=== PATIENT | female | born 1960 | race Caucasian/White ===

== ENCOUNTER 2025-05-15 03:39 | Emergency (ER) | payer MEDICARE, SELFPAY ==
--- NOTE | ~2025-05-15 | XR_ITS ---
Portable chest x-ray Comparison: None Clinical History: Epigastric pain Findings: Lungs are clear, without focal consolidation or pleural effusion. Cardiomediastinal silho uette is unremarkable. Bones and soft tissues are unremarkable. Impression: Normal chest. Reviewed, dictated and finalized at location . Impression: Normal chest.
[2025-05-15 03:45] VITALS: BP 189/70; PULSE 65; RESP 14; TEMP 36.6; O2SAT 100
--- NOTE | 2025-05-15 03:48 | ECG_ITS ---
Test Date: 2025-05-15 03:55:42 Measurements Intervals [place] Rate: 57 P: 44 [place]: 174 QRS: 2 QRSD: 76 T: 42 QT: 420 QTc: 412 Interpretive Statements SINUS BRADYCARDIA CONSIDER RIGHT VENTRICULAR CONDUCTION DELAY LEFT VENTRICULAR HYPERTROPHY WITH ST-T CHANGE BASELINE ARTIFACT- I, II, III, AVR, AVL, AVF, V1-V6 BORDERLINE ECG No previous ECG available for comparison Electronically Signed On 05-15-2025 06:11:19 CDT by Trell Bolton D.O.
--- NOTE | 2025-05-15 03:49 | ED_ITS ---
HPI - General Adult General Chief complaint: Abdominal Pain Stated complaint: abd pain Time Seen by Provider: 05/15/25 03:41 History of Present Illness HPI narrative: 64-year-old female history of hypertension, high cholesterol presented emergency department for evaluation for epigastric abdominal pain. Patient states she did have similar pain on Monday night and pain resolved. Patient reports she was sleeping the epigastric pain started again tonight at approximately 1:30 a.m.. Patient denies any radiation of the pain to neck back or arms. Patient does take daily Advil but denies any prior history of gastritis esophagitis or GERD. Patient denies any prior cardiac history but has never had a stress test. Related Data Allergies Allergy/AdvReac Type Severity Reaction Status Date / Time No Known Allergies Allergy Verified 05/15/25 03:51 Review of Systems 2 Review of Systems: All systems reviewed & are unremarkable except as noted in HPI and below Exam 2 Narrative: APPEARANCE: Uncomfortable appearing HEAD: normocephalic, atraumatic. EYES: PERRLA/EOMI, conjunctivae clear. NOSE: Normal no drainage EARS:TMS clear with good light reflex. THROAT: Pharynx clear, no exudate. NECK: Supple. No adenopathy, no masses. RESPIRATORY: Airway patent, respirations nonlabored. Clear to auscultation bilaterally, no rales, rhonchi, wheezing. CARDIOVASCULAR: Regular rate and rhythm without murmurs rubs or gallops. ABDOMINAL: No reproducible epigastric tenderness to palpation MUSCULOSKELETAL: Moves all extremities. Strength/ROM intact, No edema, No calf tenderness. NEURO: Alert. Cranial nerves II through XII intact. Good gait. Good coordination SKIN: Warm, dry. Normal Color Course Vital Signs Vital signs: Vital Signs Temperature 97.9 F 05/15/25 03:45 Pulse Rate 65 05/15/25 03:45 Respiratory Rate 14 05/15/25 03:45 Blood Pressure 189/70 H 05/15/25 03:45 Pulse Oximetry 100 05/15/25 03:45 Oxygen Delivery Room Air 05/15/25 03:45 Temperature 97.9 F 05/15/25 03:57 Pulse Rate 57 L 05/15/25 03:57 Respiratory Rate 20 05/15/25 03:57 Blood Pressure 189/70 H 05/15/25 03:57 Pulse Oximetry 100 05/15/25 03:57 Oxygen Delivery Room Air 05/15/25 03:57 Medical Decision Making MDM Narrative Medical decision making narrative: 64-year-old female present to the emergency department for evaluation for epigastric pain. Patient is currently afebrile with no leukocytosis hemoglobin of 12.5 no acute abnormalities on the CMP and patient had a negative troponin negative lipase. Patient was treated with IV Protonix, IV famotidine and a p.o. GI cocktail. Patient reports that GI cocktail did resolve her symptoms. EKG shows no evidence of acute STEMI chest x-ray shows no acute cardiopulmonary abnormality. Patient will be started on omeprazole for home encouraged to avoid taking NSAIDs and will be encouraged to have follow-up with GI. Patient will also be encouraged to have close outpatient follow-up for additional outpatient cardiac testing. At time of sign-out the delta troponin is pending. Vital Signs Vital Signs: Vital Signs Temperature 97.9 F 05/15/25 03:45 Pulse Rate 65 05/15/25 03:45 Respiratory Rate 14 05/15/25 03:45 Blood Pressure 189/70 H 05/15/25 03:45 Pulse Oximetry 100 05/15/25 03:45 Oxygen Delivery Room Air 05/15/25 03:45 Temperature 97.9 F 05/15/25 03:57 Pulse Rate 57 L 05/15/25 03:57 Respiratory Rate 20 05/15/25 03:57 Blood Pressure 189/70 H 05/15/25 03:57 Pulse Oximetry 100 05/15/25 03:57 Oxygen Delivery Room Air 05/15/25 03:57 Lab Data 05/15/25 03:56 05/15/25 03:56 Labs: Lab Results 05/15/25 05/15/25 Range/Units 03:56 06:59 WBC 8.6 (4.5-10.0) K/mm3 RBC 4.41 (4.2-5.4) M/mm3 Hgb 12.5 (12.0-15.0) g/dL Hct 40.1 (37.0-47.0) % MCV 90.9 (80-100) fl MCH 28.3 (26-34) pg MCHC 31.2 L (32-36) g/dl RDW 13.3 (11.5-14.5) % Plt Count 257 (150-375) k/mm3 MPV 9.4 (7.4-10.4) fl Immature Gran % (Auto) 0.2 (0-0.5) % Neut % (Auto) 56.5 (45.5-73.1) % Lymph % (Auto) 31.7 (18.3-44.2) % [place] % (Auto) 8.2 (2.6-8.5) % Eos % (Auto) 2.9 (0-4.4) % Baso % (Auto) 0.5 (0.2-1.2) % Lymph # (Auto) 2.74 (0.9-3.2) K/mm3 [place] # (Auto) 0.7 H (0.1-0.6) K/mm3 Eos # (Auto) 0.3 (0-0.3) K/mm3 Baso # (Auto) 0.0 (0.0-0.1) K/mm3 Abs Immat Gran (auto) 0.02 (0.00-0.031) K/mm3 Absolute Neuts (auto) 4.9 (1.3-6.7) K/mm3 Absolute Nucleated RBC 0.000 (0.0-0.012) K/mm3 Nucleated RBC % 0.0 (0.0-0.2) % PT 13.7 (11.1-14.7) Seconds INR 1.1 APTT 26.6 (22.3-36.8) Seconds Sodium 142 (137-145) mmol/L Potassium 3.7 (3.4-5.0) mmol/L Chloride 107 (98-107) mmol/L Carbon Dioxide 24 (22-30) mmol/L Anion Gap 11 (4-12) mmol/L BUN 16 (7-17) mg/dL Creatinine 0.79 (0.7-1.0) mg/dL Estim Creat Clear Calc 59 ml/min Estimated GFR > 60 (59 - ) Glucose 127 H (65-110) mg/dL Lactic Acid 2.0 (0.7-2.0) mmol/L Calcium 9.5 (8.4-10.2) mg/dL Total Bilirubin 0.4 (0.2-1.3) mg/dL AST 28 (14-36) U/L ALT 24 (6-35) U/L Alkaline Phosphatase 112 (38-126) U/L Troponin I < 0.012 < 0.012 (0.000-0.034) ng/mL Total Protein 8.2 (6.3-8.2) g/dL Albumin 4.7 (3.5-5.1) g/dL Lipase 224 (23-300) U/L Discharge Plan Discharge Clinical Impression: Acute epigastric pain Patient Disposition: Home Condition: Stable Instructions: Antibiotic Form, Diet for Stomach Ulcers and Gastritis (ED) Additional Instructions: Avoid alcohol and avoid NSAIDs such as ibuprofen. Follow a bland diet. Omeprazole as directed for the next 14 days. Have close follow-up with GI. Also have close follow-up with your primary care physician for additional outpatient cardiac testing. Patient Language: Swedish Prescriptions: New omeprazole 20 mg capsule,delayed release(DR/EC) 20 mg PO DAILY 14 Days Qty: 14 0RF Follow-up/Referrals: PHYSICIAN NOT ON STAFF,NONSTAFF [Primary Care Provider] -
[2025-05-15 03:57] VITALS: BP 189/70; PULSE 57; RESP 20; TEMP 36.6; O2SAT 100
[2025-05-15] MEDS: PANTOPRAZOLE SODIUM IV 40 MG VIAL IV PUSH (04:01)
[2025-05-15] MEDS: FAMOTIDINE 20 MG/2 ML VIAL IV PUSH (04:01)
[2025-05-15 04:09] LABS: Basophils Percent Auto 0.5 % (0.2-1.2); Eosinophils Absolute Auto 0.3 K/mm3 (0-0.3); Eosinophils Percent Auto 2.9 % (0-4.4); Hematocrit 40.1 % (37.0-47.0); Hemoglobin 12.5 g/dL (12.0-15.0); Immature Granulocyte Absolute 0.02 K/mm3 (0.00-0.031); Immature Granulocyte Percent A 0.2 % (0-0.5); Lymphocytes Absolute Auto 2.74 K/mm3 (0.9-3.2); Lymphocytes Percent Auto 31.7 % (18.3-44.2); Mean Corpuscular HGB Conc 31.2 g/dl (32-36); Mean Corpuscular Hemoglobin 28.3 pg (26-34); Mean Corpuscular Volume 90.9 fl (80-100); Mean Platelet Volume 9.4 fl (7.4-10.4); Monocytes Absolute Auto 0.7 K/mm3 (0.1-0.6); Monocytes Percent Auto 8.2 % (2.6-8.5); Neutrophils Absolute Auto 4.9 K/mm3 (1.3-6.7); Neutrophils Percent Auto 56.5 % (45.5-73.1); Platelet Count Result 257 k/mm3 (150-375); Red Blood Count 4.41 M/mm3 (4.2-5.4); Red Cell Distribution Width 13.3 % (11.5-14.5); White Blood Count 8.6 K/mm3 (4.5-10.0)
[2025-05-15 04:16] LABS: Alanine Aminotransferase 24 U/L (6-35); Albumin Level 4.7 g/dL (3.5-5.1); Alkaline Phosphatase 112 U/L (38-126); Anion Gap 11 mmol/L (4-12); Aspartate Amino Transferase 28 U/L (14-36); Bilirubin,Total 0.4 mg/dL (0.2-1.3); Blood Urea Nitrogen 16 mg/dL (7-17); Calcium 9.5 mg/dL (8.4-10.2); Carbon Dioxide 24 mmol/L (22-30); Chloride 107 mmol/L (98-107); Estimated CRCL calculation 59 ml/min; Estimated Glomerular Filt Rate > 60; Glucose 127 mg/dL (65-110); Lipase 224 U/L (23-300); Potassium 3.7 mmol/L (3.4-5.0); Sodium 142 mmol/L (137-145); Total Protein 8.2 g/dL (6.3-8.2)
[2025-05-15 04:28] LABS: Troponin I < 0.012 ng/mL (0.000-0.034)
[2025-05-15 04:30] LABS: INR 1.1; Prothrombin Time 13.7 Seconds (11.1-14.7)
[2025-05-15 04:31] LABS: Partial Thromboplastin Time 26.6 Seconds (22.3-36.8)
[2025-05-15] MEDS: BELLADONNA ALK/PHENOB ELIX 10 ML, MAG HYDROX/ALUMINUM HYD/SIMETH 30 ML, LIDOCAINE 2% VI... PO (04:32)
--- NOTE | 2025-05-15 06:56 | ECG_ITS ---
Test Date: 2025-05-15 06:57:56 Measurements Intervals [place] Rate: 59 P: 32 [place]: 171 QRS: -3 QRSD: 84 T: 22 QT: 416 QTc: 413 Interpretive Statements SINUS BRADYCARDIA CONSIDER RIGHT VENTRICULAR CONDUCTION DELAY LEFT VENTRICULAR HYPERTROPHY BASELINE ARTIFACT- I, II, AVR, AVL, AVF BORDERLINE ECG COMPARED WITH PRIOR ECG 05-15-25 03:55 NO SIGNIFICANT CHANGE Electronically Signed On 05-15-2025 07:00:17 CDT by Trell Bolton D.O.
[2025-05-15 07:37] LABS: Troponin I < 0.012 ng/mL (0.000-0.034)
== END 2025-05-15 08:38 | disposition home or self-care (01) ==
PROVIDERS: Emergency Provider Emergency Medicine
DX: R10.13 Epigastric pain (principal); I10 Essential (primary) hypertension; E78.00 Pure hypercholesterolemia, unspecified; R00.1 Bradycardia, unspecified; R94.31 Abnormal electrocardiogram [ECG] [EKG]; I51.7 Cardiomegaly
CPT/HCPCS: 36415; 71045; 80053; 83605; 83690; 84484; 85025; 85610; 85730; 93005; 96374; 96375; 99284; A9270; J2470